=== PATIENT | male | born 1955 | race Caucasian/White ===

== ENCOUNTER → 2019-04-13 | Outpatient (CLI) | payer OTHER ==
[~2019-04-13] MED LIST: DIABETA5 M1; METFORMIN HYDR100 GM
--- NOTE | 2019-04-13 13:35 | Diagnostic Imaging Report ---
EXAMINATION: MRI of the cervical spine without contrast HISTORY: Neck pain, radiating to the left upper extremity for the last 5 months with weakness COMPARISON: None available TECHNIQUE: Sagittal T1, T2, STIR; axial T2, gradient echo. FINDINGS: Curvature: Normal lordosis. Minimal retrolisthesis at C5-C6. Vertebrae: No evidence of neoplasm, infection, or fracture. Chronic endplate degenerative changes at C5-C6 Foramen magnum: Degenerative changes with minimal effusion left articular space between the occipital condyle and lateral mass of C1, with minimal subligamentous effusion tracking down to C2 anteriorly and bilaterally. Spinal Cord: Normal size and signal intensity. Soft Tissues: Uncovertebral and facet arthrosis minimally right. Mild right foraminal stenosis. Degenerative changes: C1-C2: Mild degenerative without stenoses C2-C3: Uncovertebral and facet arthrosis mainly on the right. Mild to moderate right foraminal stenoses. C3-C4: Prominent uncovertebral and facet arthroses and in the right. Severe right foraminal stenosis. Compression upon the exiting right C4 nerve root cannot be excluded. C4-C5: Small disc osteophyte complex formation, prominent bilateral uncovertebral and facet arthrosis. Severe foraminal stenosis worst on the left. Compression upon the exiting left C5 nerve root cannot be excluded. C5-C6: Disc osteophyte complex formation, bilateral uncovertebral and facet arthrosis. Mild spinal canal stenosis. Moderate right and severe left foraminal stenoses. Compression upon the exiting left C6 nerve root cannot be excluded. C6-C7: Disc osteophyte information, bilateral uncovertebral and facet arthrosis. No significant stenoses. C7-T1: Bilateral facet arthrosis without stenoses. IMPRESSION: 1. Mild multilevel spondylolisthesis, more prominent at C5-C6, with mild spinal canal stenosis. 2. Severe degenerative foraminal stenosis on the right at C3-C4, and mainly on the left at C4-C5 and C5-C6 as detailed above. 3. Normal cervical spinal cord. 4. Minimal retrolisthesis at C5-C6. Signed by: Dr. Leisa Sow M.D. on 04/13/2019 1:31 PM
== END ==
LOC: MRI 10:51
PROVIDERS: ATTEND Family Medicine
DX: M47.22 Other spondylosis with radiculopathy, cervical region (principal)
CPT/HCPCS: 72141

== ENCOUNTER → 2023-02-19 | Outpatient (CLI) | payer MEDICARE ==
[~2023-02-19] MED LIST changes: +IOPAMIDOL 370 MG/ML 100 ML INFUS..BTL INJ ONE
[2023-02-19 13:16] LABS: CREATININE, SERUM 1.25 mg/dL (0.72-1.25)
== END ==
LOC: CT 12:20
PROVIDERS: ATTEND Family Medicine
DX: R05.8 Other specified cough (principal); J98.8 Other specified respiratory disorders; R09.89 Other specified symptoms and signs involving the circulatory and respiratory systems; R93.89 Abnormal findings on diagnostic imaging of other specified body structures
CPT/HCPCS: 36415; 71260; 82565; 84520; Q9967

== ENCOUNTER → 2023-03-08 | Outpatient (CLI) | payer MEDICARE ==
[~2023-03-08] MED LIST changes: -IOPAMIDOL 370 MG/ML 100 ML INFUS..BTL INJ ONE
== END ==
LOC: US 10:52
PROVIDERS: ATTEND Family Medicine
DX: R22.31 Localized swelling, mass and lump, right upper limb (principal)
CPT/HCPCS: 76882

== ENCOUNTER → 2023-09-14 | Outpatient (REF) | payer MEDICARE | LOC: MRI 10:36 | PROVIDERS: ATTEND Family Medicine | DX: S46.911A Strain of unspecified muscle, fascia and tendon at shoulder and upper arm level, right arm, initial encounter (principal) ==